=== PATIENT | female | born 1990 | race Caucasian/White ===

== ENCOUNTER 2023-11-15 01:29 | Emergency (ER) | payer OTHER, SELFPAY ==
[2023-11-15 01:29] VITALS: BMI 37.0
[2023-11-15 01:37] VITALS: BP 159/91
--- NOTE | 2023-11-15 01:57 | ED.GENMED ---
History of Present Illness
<ABNER Giang - Last Filed: 11/15/23 02:16>
General
Chief Complaint: Abdominal Symptoms
Source: patient
Exam Limitations: none
Time Seen by Provider: 11/15/23 01:43
Travel History
Have you had any contact with someone who has COVID-19?: No
Do you have any symptoms of coronavirus? Fever > 100 degrees, chills, cough, shortness of breath, sore throat, loss of taste or smell, muscle aches, or headache?: No
History of Present Illness
History of Present Illness:
33 year old female with no significant past medical hx who presents with worsening left costal pain that radiates to the back that began 2 days ago. Pain is sharp, constant, and currently 8/10 in strength. Pain worsens with deep breathing, improved
with movement. She has been taking Ibuprofen 600 mg, last dose was 1800 without relief of symptoms. She also developed a dull pain to her L shoulder that radiates down her arm. Reports associated nausea. Denies midsternal chest pain, SOB,
fevers/chills, numbness, tingling, vomiting, diarrhea, dysuria, hematuria, URI symptoms. She notes she had an egg retrieval procedure 2 weeks ago. She is on vitamins. She is currently on her menses.
Review of Systems
<ABNER Giang - Last Filed: 11/15/23 02:16>
Review of Systems
Allergies reviewed?: Yes
All Other Systems: ROS reviewed and negative except as documented in HPI and ROS
Constitutional: Reports no symptoms
EENT: Reports no symptoms
Respiratory: Reports no symptoms
Cardiac: Reports chest pain (left lower anterior chest)
ABD/GI: Reports nausea
: Reports no symptoms
Musculoskeletal: Reports back pain and other (left arm pain)
Skin: Reports no symptoms
Neurological: Reports no symptoms
Endocrine: Reports no symptoms
Hematologic/Lymphatic: Reports no symptoms
Psychiatric: Reports no symptoms
Phy Exam
<ABNER Giang - Last Filed: 11/15/23 02:16>
General Physical Exam
General Presentation: well appearing and no apparent distress
General age: appears stated age
General Skin: warm and dry
General Habitus: normal
General Mental: alert
General Hydration: appears well hydrated
Cardiovascular Exam
Cardiovascular Exam: no edema, no gallop, no murmur and tachycardia
Pulmonary Exam
Pulmonary Exam: lungs clear, no respiratory distress, no rales, no crackles, no rhonchi, no wheezing and no cough
Gastrointestinal Exam
Gastrointestinal Exam: normal bowel sounds, non tender, soft, no pulsatile mass and non distended
Neurological Exam
Neurological Exam: alert and oriented x3
Musculoskeletal Exam
Musculoskeletal Exam: full ROM (L arm) and other (no reproducible tenderness to L lower anterior chest, )
Scores
<ABNER Giang - Last Filed: 11/15/23 02:16>
PE Wells Score
Symptoms of DVT: No
No alternative diagnosis better explains the illness: No
Tachycardia with pulse > 100: Yes
Immobilization (>=3 days) or surgery within previous 4 weeks: Yes
Prior history of DVT or pulmonary embolism: No
Presence of hemoptysis: No
Presence of malignancy: No
Pulmonary Embolism Risk Score: 3.0
Probability of PE: Pt is moderate risk
<Magda Huber MD - Last Filed: 11/15/23 05:36>
PE Wells Score
Pulmonary Embolism Risk Score: 3.0
Probability of PE: Pt is moderate risk
Course
<ABNER Giang - Last Filed: 11/15/23 02:16>
Orders/Labs/Results
Orders:
Orders
11/15/23 02:15
Electrocardiogram (*1) Stat
Reason for Study: Other
Other Reason for Exam: chest pain
EKG- Treatment ONCE
11/15/23 02:24
CT Chest Pe Study Urgent
Comment:
Reason For Exam: pleuritic cp
11/15/23 02:39
Complete Blood Count/No Diff Urgent
Comprehensive Metabolic Panel Urgent
11/15/23 04:49
Urinalysis Reflex To Culture Urgent
Date Specimen was Collected: 11/15/23
Time Specimen was Collected: 04:45
Urine Microscopic Reflex Cult Urgent
11/15/23 05:27
Ketorolac [Toradol] 15 mg IV NOW STA
Abnormal Lab Results
11/15/23 11/15/23
02:39 04:49
WBC 12.0 H 10^3/uL
(4.8-10.8)
Hgb 11.8 L g/dL
(12.0-16.0)
Hct 35.0 L %
(37.0-47.0)
MCV 79.5 L fL
(81.0-99.0)
MCH 26.8 L pg
(27.0-31.0)
Chloride 108 H mmol/L
(98-107)
Carbon Dioxide 21 L mmol/L
(22-30)
Glucose 101 H mg/dl
(70-99)
Ur Occult Blood Reflex 4+ A
(Negative)
11/15/23 02:39
11/15/23 02:39
Vital Signs
Initial and Last Documented VS:
Initial Vital Signs
Temp Pulse Resp BP Pulse Ox
98.4 F 114 16 159/91 99
11/15/23 01:37 11/15/23 01:37 11/15/23 01:37 11/15/23 01:37 11/15/23 01:37
Last Documented Vital Signs
Temp Pulse Resp BP Pulse Ox
98.4 F 112 16 129/86 100
11/15/23 01:37 11/15/23 03:31 11/15/23 03:31 11/15/23 03:31 11/15/23 03:31
<Magda Huber MD - Last Filed: 11/15/23 05:36>
Orders/Labs/Results
Orders:
Orders
11/15/23 02:15
Electrocardiogram (*1) Stat
Reason for Study: Other
Other Reason for Exam: chest pain
EKG- Treatment ONCE
11/15/23 02:24
CT Chest Pe Study Urgent
Comment:
Reason For Exam: pleuritic cp
11/15/23 02:39
Complete Blood Count/No Diff Urgent
Comprehensive Metabolic Panel Urgent
11/15/23 04:49
Urinalysis Reflex To Culture Urgent
Date Specimen was Collected: 11/15/23
Time Specimen was Collected: 04:45
Urine Microscopic Reflex Cult Urgent
11/15/23 05:27
Ketorolac [Toradol] 15 mg IV NOW STA
Abnormal Lab Results
11/15/23 11/15/23
02:39 04:49
WBC 12.0 H 10^3/uL
(4.8-10.8)
Hgb 11.8 L g/dL
(12.0-16.0)
Hct 35.0 L %
(37.0-47.0)
MCV 79.5 L fL
(81.0-99.0)
MCH 26.8 L pg
(27.0-31.0)
Chloride 108 H mmol/L
(98-107)
Carbon Dioxide 21 L mmol/L
(22-30)
Glucose 101 H mg/dl
(70-99)
Ur Occult Blood Reflex 4+ A
(Negative)
11/15/23 02:39
11/15/23 02:39
Vital Signs
Initial and Last Documented VS:
Initial Vital Signs
Temp Pulse Resp BP Pulse Ox
98.4 F 114 16 159/91 99
11/15/23 01:37 11/15/23 01:37 11/15/23 01:37 11/15/23 01:37 11/15/23 01:37
Last Documented Vital Signs
Temp Pulse Resp BP Pulse Ox
98.4 F 112 16 129/86 100
11/15/23 01:37 11/15/23 03:31 11/15/23 03:31 11/15/23 03:31 11/15/23 03:31
<ABNER Giang - Last Filed: 11/15/23 02:16>
MDM/Problems Addressed
Differential Diagnosis Includes:
PE, musculoskeletal pain, malignancy
MDM/Problems Addressed:
33 year old female who presents with L costal pain that began 2 days ago.
<ABNER Giang - Last Filed: 11/15/23 02:16>
*Critical Care Note
Total Time (30-74mins, 75-104mins- exclusive of procedures): Not Applicable
ED Attending Note
<ABNER Giang - Last Filed: 11/15/23 02:16>
-
Portions of this chart may have been created with voice recognition software.� Occasional wrong word or��sound alike� substitutions may have occurred due to the inherent limitations of voice recognition software.
<Magda Huber MD - Last Filed: 11/15/23 05:36>
ED Attending Note
Patient seen and examined by attending physician: Yes
I performed the substantive portion of visit, reviewed & personally made and approve the management plan that is documented in note by myself or NILDA.: Yes
ED Attending Note:
33-year-old female who had an egg retrieval 2 weeks ago. She was feeling well until Saturday evening when she developed discomfort in the left anterior lower chest just below her breast as well as the left back. The pain does not radiate through
to her back. This was not sudden in onset. She took Motrin without relief of symptoms. The pain continues, is noted to be sharp and pleuritic without associated dyspnea, diaphoresis, dizziness, vomiting, leg swelling, abdominal pain, fever,
chills, cough, sore throat, headache. She does note mild nausea. She also noted discomfort in the left arm neck area that feels like a 'dull throb.' On exam, GENERAL: Alert , in no apparent distress
EYE: pupils equal and reactive
NECK: Supple, no significant adenopathy.
ENT: o/p clr, mmm.
CARDIAC: Regular rate and rhythm .
LUNGS: Clear breath sounds bilaterally, no acute respiratory distress, no wheezes/rales/rhonchi
ABDOMEN: Soft, without focal tenderness, no r/g, no cvat
NEUROLOGICAL: Alert and oriented, no focal neuro deficits
SKIN: Warm and dry, skin intact.
MUSCULOSKELETAL: No edema, well perfused.
PSYCH: Normal and appropriate interaction.
Patient presents to the Emergency Department with ____chest and back pain
Number and Complexity of Problems Addressed at the Encounter
� Chronic conditions affecting care:
� Acute Exacerbation and/or Progression of Chronic Illness:
� Differential Diagnosis includes: But not limited to anxiety, musculoskeletal, pleurisy, PE, etc.
Amount and/or Complexity of Data to be Reviewed and Analyzed
� I performed an independent evaluation of and my interpretation is:
EKG: Read by me, sinus tachycardia, no acute ischemia, no right heart strain noted
CT: Vision report verbal no PE noted. Patient does have left epipericardial fat necrosis and a small left pleural effusion
Xrays:
Laboratory Studies: Nonspecific leukocytosis, mild, blood noted in urine which would be expected given patient is menstruating and likely contaminant
Other:
� Review of other/old records reveals:
� Clinical information was obtained by an independent historian:
� Prescriptions/Medications Considered but not given:
� Further testing considered but not performed:
Risk of Complications and/or Morbidity or Mortality of Patient Management
� Social determinants of health affecting care:
� Discussion with other providers (PCP, Hospitalists, Consultants, etc):
� Escalation of care including admission/observation vs risk of discharge considered:Pt with epicardial fat necrosis and small L pl effusion on CT, no pe or other abnl noted. Via verbal rads report, and my review, this dx
considered a benign inflammatory condition txd with NSAIDS. Toradol ordered now. Long d/w pt re:dx, import of f/u and reasons to rted. She is stable, vitals wnl.
Discharge Plan
Departure
Patient Disposition: Home (Routine Discharge)
Date of Disposition: 11/15/23
Time of Disposition: 05:33
Patient with high blood pressure during this ER visit?: Yes
Condition: Good
Discharge Problem:
epicardial fat necrosis, Pleural effusion
Instructions: Pleural effusion - Discharge instructions, BLOOD PRESSURE
Referrals:
Mark Herman, DO [Family Provider] - Follow up in 2-3 days
Activity Restrictions/Additional Instructions:
PLEASE TAKE ANTI INFLAMMATORY MEDICATIONS (EX. MOTRIN) EVERY 6-8 HOURS. IF YOU DEVELOP INCREASING/NEW/PERSISTENT PAIN, FEVER, VOMITING, TROUBLE BREATHING, ABDOMINAL PAIN, GET WORSE, DO NOT GET BETTER OR OTHER WORRISMOE SIGNS, GO TO THE ER
IMMEDIATELY!
Interventions
Interventions:
*Risk Screen - Suicide Last Done: 11/15/23 01:37
*General Assessment Last Done: 11/15/23 01:37
*Neglect/Abuse Screening Last Done: 11/15/23 01:37
Discharge Date and Time
Print Language: YI
[2023-11-15 03:03] LABS: Hemoglobin 11.8 g/dL (12.0-16.0); Mean Corp Hgb Conc. 33.7 g/dL (33.0-37.0); Mean Corpuscular Hgb 26.8 pg (27.0-31.0); Mean Corpuscular Volume 79.5 fL (81.0-99.0); Mean Platelet Volume 8.4 fL (7.4-10.4); Platelet Count 385 10^3/uL (130-400); Red Cell Dist. Width 14.1 % (11.5-14.5)
[2023-11-15 03:20] LABS: ALT (SGPT) 18 U/L (0-35); AST (SGOT) 21 U/L (14-36); Albumin 4.1 g/dl (3.5-5.0); Alkaline Phosphatase 74 U/L (38-126); Blood Urea Nitrogen 14 mg/dl (7-17); Calcium 9.8 mg/dl (8.4-10.2); Carbon Dioxide 21 mmol/L (22-30); Chloride 108 mmol/L (98-107); Glucose 101 mg/dl (70-99); Potassium 3.9 mmol/L (3.5-5.1); Sodium 136 mmol/L (135-145); Total Bilirubin 0.4 mg/dl (0.2-1.3); eGFR > 60.00
[2023-11-15 03:31] VITALS: BP 129/86
[2023-11-15 05:04] LABS: Urine Albumin Negative (Neg - Trace); Urine Bilirubin Negative (Negative); Urine Character Clear (Clear); Urine Color Yellow; Urine Glucose Negative (Negative); Urine Ketone Negative (Negative); Urine Leukocyte Negative (Negative); Urine Nitrite Negative (Negative); Urine Occult Blood 4+ (Negative); Urine Urobilinogen Negative (Neg - 1+)
[2023-11-15] MEDS: TORADOL 15 MG IV (05:35)
[2023-11-15 05:38] VITALS: BP 126/80
[2023-11-15 08:16] LABS: Urine Squamous Cell 0-2 /LPF (Few)
[2023-11-15 08:17] LABS: Urine White Cell 0-2 /HPF (0-5)
== END 2023-11-15 06:16 | disposition home or self-care (01) ==
LOC: EMR 01:29
PROVIDERS: EMERGENCY PHYSICIAN Emergency Medicine; FAMILY PHYSICIAN Family Medicine
DX: M25.512 Pain in left shoulder (principal); R11.0 Nausea; R10.9 Unspecified abdominal pain; M54.9 Dorsalgia, unspecified; J90 Pleural effusion, not elsewhere classified; M79.89 Other specified soft tissue disorders; R03.0 Elevated blood-pressure reading, without diagnosis of hypertension; Z98.890 Other specified postprocedural states
CPT/HCPCS: 99285; 96374; 71275; 80053; 81003; 81015; 85027; 93005; Q9967

== ENCOUNTER → 2024-05-19 06:52 | Outpatient (REF) | payer OTHER, SELFPAY | LOC: PNTC 06:52 | PROVIDERS: ATTENDING PHYSICIAN Obstetrics & Gynecology | DX: Z36.0 Encounter for antenatal screening for chromosomal anomalies (principal); Z36.82 Encounter for antenatal screening for nuchal translucency | CPT/HCPCS: 76801; 76813 ==

== ENCOUNTER → 2024-06-08 06:46 | Outpatient (REF) | payer OTHER, SELFPAY | LOC: PNTC 06:46 | PROVIDERS: ATTENDING PHYSICIAN Obstetrics & Gynecology | DX: O09.529 Supervision of elderly multigravida, unspecified trimester (principal); Z34.82 Encounter for supervision of other normal pregnancy, second trimester | CPT/HCPCS: 76805 ==

== ENCOUNTER → 2024-07-07 06:50 | Outpatient (REF) | payer OTHER, SELFPAY | LOC: PNTC 06:50 | PROVIDERS: ATTENDING PHYSICIAN Obstetrics & Gynecology | DX: O09.529 Supervision of elderly multigravida, unspecified trimester (principal) | CPT/HCPCS: 76811 ==

== ENCOUNTER 2024-08-09 15:57 | Observation (INO) | payer OTHER, SELFPAY ==
[2024-08-09 16:12] VITALS: BP 121/57; BMI 37.8
[2024-08-09] MEDS: LR 1000 IV ×2 (16:30→18:00)
[2024-08-09 16:34] LABS: Urine Albumin Negative (Neg - Trace); Urine Bilirubin Negative (Negative); Urine Character Clear (Clear); Urine Color Yellow; Urine Glucose Negative (Negative); Urine Ketone 1+ (Negative); Urine Leukocyte 1+ (Negative); Urine Nitrite Negative (Negative); Urine Occult Blood Negative (Negative); Urine Urobilinogen Negative (Neg - 1+)
[2024-08-09 16:40] LABS: % Basophils 0.2 % (0-2); % Eosinophils 1.3 % (0-6); % Immature Granulocytes 0.2 % (0-0.5); % Lymphocytes 16.6 % (20.5-51.1); % Monocytes 6.1 % (1.7-9.3); % Neutrophils 75.6 % (42.2-75.2); Absolute Eosinophils 0.2 10^3/uL (0-0.7); Absolute Monocytes 0.7 10^3/uL (0.1-0.6); Absolute Neutrophils 9.2 10^3/uL (1.4-6.5); Hematocrit 32.9 % (37.0-47.0); Hemoglobin 10.9 g/dL (12.0-16.0); Mean Corp Hgb Conc. 33.1 g/dL (33.0-37.0); Mean Corpuscular Hgb 27.9 pg (27.0-31.0); Mean Corpuscular Volume 84.4 fL (81.0-99.0); Nucleated Red Blood Cells % 0 %; Platelet Count 302 10^3/uL (130-400); Red Cell Dist. Width 13.5 % (11.5-14.5); White Blood Cell Count 12.2 10^3/uL (4.8-10.8)
[2024-08-09 16:49] LABS: Urine Squamous Cell 0-2 /LPF (Few)
[2024-08-09 16:50] LABS: Urine Bacteria Few (Negative); Urine Red Blood Cell 0-2 /HPF (0-2)
[2024-08-09 17:03] LABS: ALT (SGPT) 21 U/L (0-35); AST (SGOT) 21 U/L (14-36); Albumin 3.8 g/dl (3.5-5.0); Alkaline Phosphatase 91 U/L (38-126); Blood Urea Nitrogen 4 mg/dl (7-17); Calcium 9.6 mg/dl (8.4-10.2); Carbon Dioxide 18 mmol/L (22-30); Chloride 106 mmol/L (98-107); Estimated Creatinine Clearance > 125 ml/min; Glucose 80 mg/dl (70-99); Sodium 133 mmol/L (135-145); Total Bilirubin 0.5 mg/dl (0.2-1.3); Total Protein 6.2 g/dl (6.3-8.2); eGFR > 60.00
== END 2024-08-09 20:24 | disposition home or self-care (01) ==
LOC: LDRP 15:57
PROVIDERS: ADMITTING PHYSICIAN Obstetrics & Gynecology; FAMILY PHYSICIAN Family Medicine
DX: O26.892 Other specified pregnancy related conditions, second trimester (principal); R10.30 Lower abdominal pain, unspecified; R39.15 Urgency of urination; Z3A.24 24 weeks gestation of pregnancy; O09.522 Supervision of elderly multigravida, second trimester; D25.9 Leiomyoma of uterus, unspecified; Z14.1 Cystic fibrosis carrier
CPT/HCPCS: 80053; 81003; 81015; 82731; 85025; 86850; 86900; 86901; 87086; G0378

== ENCOUNTER → 2024-08-17 06:52 | Outpatient (REF) | payer OTHER, SELFPAY | LOC: PNTC 06:52 | PROVIDERS: ATTENDING PHYSICIAN Obstetrics & Gynecology | DX: O09.519 Supervision of elderly primigravida, unspecified trimester (principal); O09.819 Supervision of pregnancy resulting from assisted reproductive technology, unspecified trimester; O99.210 Obesity complicating pregnancy, unspecified trimester | CPT/HCPCS: 76816 ==

== ENCOUNTER → 2024-10-05 06:51 | Outpatient (REF) | payer OTHER, SELFPAY | LOC: PNTC 06:51 | PROVIDERS: ATTENDING PHYSICIAN Obstetrics & Gynecology | DX: O09.529 Supervision of elderly multigravida, unspecified trimester (principal) | CPT/HCPCS: 76816 ==

== ENCOUNTER 2024-10-27 08:09 | Observation (INO) | payer OTHER, SELFPAY ==
[2024-10-27 08:35] VITALS: BP 161/93; BMI 39.2
[2024-10-27 08:37] LABS: % Basophils 0.1 % (0-2); % Eosinophils 0.5 % (0-6); % Immature Granulocytes 0.6 % (0-0.5); % Lymphocytes 12.1 % (20.5-51.1); % Monocytes 4.4 % (1.7-9.3); % Neutrophils 82.3 % (42.2-75.2); Absolute Eosinophils 0.1 10^3/uL (0-0.7); Absolute Immature Granulocytes 0.1 10^3/uL (0-0.05); Absolute Lymphocytes 1.3 10^3/uL (1.2-3.4); Absolute Monocytes 0.5 10^3/uL (0.1-0.6); Absolute Neutrophils 8.7 10^3/uL (1.4-6.5); Hematocrit 32.8 % (37.0-47.0); Hemoglobin 10.8 g/dL (12.0-16.0); Mean Corp Hgb Conc. 32.9 g/dL (33.0-37.0); Mean Corpuscular Hgb 27.6 pg (27.0-31.0); Mean Corpuscular Volume 83.7 fL (81.0-99.0); Mean Platelet Volume 9.2 fL (7.4-10.4); Nucleated Red Blood Cells % 0 %; Platelet Count 329 10^3/uL (130-400); Red Blood Cell Count 3.92 10^6/uL (4.20-5.40); White Blood Cell Count 10.5 10^3/uL (4.8-10.8)
[2024-10-27 08:39] LABS: ALT (SGPT) 19 U/L (0-35); AST (SGOT) 21 U/L (14-36); Albumin 3.2 g/dl (3.5-5.0); Alkaline Phosphatase 136 U/L (38-126); Blood Urea Nitrogen 12 mg/dl (7-17); Calcium 9.4 mg/dl (8.4-10.2); Carbon Dioxide 21 mmol/L (22-30); Chloride 111 mmol/L (98-107); Glucose 88 mg/dl (70-99); Potassium 4.2 mmol/L (3.5-5.1); Sodium 137 mmol/L (135-145); Total Bilirubin 0.2 mg/dl (0.2-1.3); Total Protein 5.8 g/dl (6.3-8.2); Uric Acid 6.2 mg/dl (2.5-6.2); Urine Albumin Negative (Neg - Trace); Urine Bilirubin Negative (Negative); Urine Character Clear (Clear); Urine Color Yellow; Urine Glucose Negative (Negative); Urine Ketone Negative (Negative); Urine Leukocyte 1+ (Negative); Urine Nitrite Negative (Negative); Urine Occult Blood Negative (Negative); Urine Urobilinogen Negative (Neg - 1+); Urine pH 6.5 (5.0-9.0); eGFR > 60.00
[2024-10-27 08:55] LABS: Protein/creatinine Ratio 0.1; Urine Protein 9 mg/dl
[2024-10-27 09:05] LABS: Urine Bacteria Moderate (Negative); Urine Red Blood Cell 0-2 /HPF (0-2); Urine Urothelial Cell 0-2 /LPF (FEW)
== END 2024-10-27 10:16 | disposition home or self-care (01) ==
LOC: PNTC-IN 08:09
PROVIDERS: ADMITTING PHYSICIAN Obstetrics & Gynecology; ATTENDING PHYSICIAN Obstetrics & Gynecology
DX: O16.3 Unspecified maternal hypertension, third trimester (principal); O09.523 Supervision of elderly multigravida, third trimester; O99.213 Obesity complicating pregnancy, third trimester; O09.813 Supervision of pregnancy resulting from assisted reproductive technology, third trimester; Z3A.36 36 weeks gestation of pregnancy; O34.13 Maternal care for benign tumor of corpus uteri, third trimester; D25.9 Leiomyoma of uterus, unspecified
CPT/HCPCS: 59025; 76816; 80053; 81003; 81015; 82570; 84156; 84550; 85025; G0378

== ENCOUNTER → 2024-11-03 07:08 | Outpatient (REF) | payer OTHER, SELFPAY | LOC: PNTC 07:08 | PROVIDERS: ATTENDING PHYSICIAN Obstetrics & Gynecology | DX: O09.529 Supervision of elderly multigravida, unspecified trimester (principal); O99.213 Obesity complicating pregnancy, third trimester; O09.813 Supervision of pregnancy resulting from assisted reproductive technology, third trimester | CPT/HCPCS: 59025; 76815 ==

== ENCOUNTER 2024-11-03 11:58 | Inpatient (IN) | payer OTHER, SELFPAY ==
[2024-11-03 12:08] VITALS: BP 141/79; BMI 40.4
[2024-11-03 12:46] LABS: % Basophils 0.2 % (0-2); % Eosinophils 0.5 % (0-6); % Immature Granulocytes 0.4 % (0-0.5); % Lymphocytes 14.1 % (20.5-51.1); % Monocytes 5.1 % (1.7-9.3); % Neutrophils 79.7 % (42.2-75.2); Absolute Eosinophils 0.1 10^3/uL (0-0.7); Absolute Lymphocytes 1.6 10^3/uL (1.2-3.4); Absolute Monocytes 0.6 10^3/uL (0.1-0.6); Absolute Neutrophils 8.9 10^3/uL (1.4-6.5); Hematocrit 33.3 % (37.0-47.0); Hemoglobin 10.9 g/dL (12.0-16.0); Mean Corp Hgb Conc. 32.7 g/dL (33.0-37.0); Mean Corpuscular Hgb 27.5 pg (27.0-31.0); Mean Corpuscular Volume 83.9 fL (81.0-99.0); Mean Platelet Volume 9.4 fL (7.4-10.4); Nucleated Red Blood Cells % 0 %; Platelet Count 325 10^3/uL (130-400); Red Blood Cell Count 3.97 10^6/uL (4.20-5.40); Red Cell Dist. Width 15.1 % (11.5-14.5); White Blood Cell Count 11.1 10^3/uL (4.8-10.8)
[2024-11-03 13:05] LABS: ALT (SGPT) 17 U/L (0-35); AST (SGOT) 23 U/L (14-36); Albumin 3.6 g/dl (3.5-5.0); Alkaline Phosphatase 185 U/L (38-126); Blood Urea Nitrogen 11 mg/dl (7-17); Calcium 9.8 mg/dl (8.4-10.2); Carbon Dioxide 21 mmol/L (22-30); Chloride 112 mmol/L (98-107); Estimated Creatinine Clearance > 125 ml/min; Glucose 77 mg/dl (70-99); Potassium 4.3 mmol/L (3.5-5.1); Sodium 136 mmol/L (135-145); Total Bilirubin 0.4 mg/dl (0.2-1.3); Total Protein 6.2 g/dl (6.3-8.2); eGFR > 60.00
[2024-11-03 13:11] LABS: Urine Albumin 1+ (Neg - Trace); Urine Bilirubin Negative (Negative); Urine Character Clear (Clear); Urine Color Yellow; Urine Glucose Negative (Negative); Urine Ketone 1+ (Negative); Urine Leukocyte 2+ (Negative); Urine Nitrite Negative (Negative); Urine Occult Blood Negative (Negative); Urine Urobilinogen Negative (Neg - 1+); Urine pH 6.5 (5.0-9.0)
[2024-11-03 13:40] LABS: Urine Amorphous Seen; Urine Squamous Cell 16-20 /LPF (Few)
[2024-11-03 13:41] LABS: Urine Red Blood Cell 0-2 /HPF (0-2)
[2024-11-03 13:43] LABS: Urine Bacteria Many (Negative)
[2024-11-03 13:48] LABS: Protein/creatinine Ratio 0.4; Urine Protein 18 mg/dl
[2024-11-03] MEDS: CYTOTEC 25 MICROGRAM VAG (14:04)
[2024-11-03] MEDS: CYTOTEC 50 MICROGRAM PO (18:17)
[2024-11-03] MEDS: LR 1000 IV (22:06)
[2024-11-03] MEDS: FLUSH (NSS) 1 FLUSH IV (22:06)
[2024-11-04] MEDS: CYTOTEC PO ×2 (00:33→03:07)
[2024-11-04] MEDS: CYTOTEC 50 MICROGRAM PO ×3 (03:07→12:02)
--- NOTE | 2024-11-04 16:37 | DOWNTIME ---
There was a [employer] Downtime on 11/04/2024 from 1230 to 11/04/2024 at 1550. Downtime documentation of patient's care, including medication administrations, has been reconciled in the electronic record per guidelines. Refer to the
patient's paper chart under the miscellaneous tab to see printed paper medication records and downtime forms.
[2024-11-04] MEDS: PITOCIN 30 UNITS/NSS 500 ML IV (19:03)
[2024-11-05] MEDS: LR 1000 IV ×2 (02:10→22:06)
[2024-11-05] MEDS: STADOL 1 MG IV ×2 (10:07→11:50)
[2024-11-05] MEDS: TRANDATE 20 MG IV ×2 (10:12→14:56)
[2024-11-05] MEDS: MAGNESIUM SULFATE 100 IV (10:18)
[2024-11-05] MEDS: MAGNESIUM SULFATE 40 GRAM 1000 IV (10:39)
[2024-11-05] MEDS: PROCARDIA XL (EXTENDED RELEASE) 30 MG PO (15:02)
[2024-11-05] MEDS: TRANDATE 40 MG IV (15:55)
[2024-11-05] MEDS: TYLENOL 650 MG PO (20:27)
[2024-11-05] MEDS: FENTANYL/BUPIVACAINE 100 EPIDURAL (21:31)
[2024-11-05] MEDS: SUBLIMAZE 100 MCG EPIDURAL (21:31)
[2024-11-05] MEDS: TUMS CHEWABLE TABLET 400 MG PO (22:36)
[2024-11-06] MEDS: PITOCIN 30 UNITS/NSS 500 ML IV (00:31)
[2024-11-06] MEDS: FENTANYL/BUPIVACAINE 100 EPIDURAL ×2 (06:10→12:04)
[2024-11-06] MEDS: MAGNESIUM SULFATE 40 GRAM 1000 IV ×2 (06:18→14:52)
[2024-11-06] MEDS: LR 1000 IV (10:06)
[2024-11-06] MEDS: PROCARDIA XL (EXTENDED RELEASE) PO (10:28)
[2024-11-06] MEDS: MOTRIN 600 MG PO ×2 (14:56→22:25)
[2024-11-06] MEDS: PROCARDIA XL (EXTENDED RELEASE) 30 MG PO (15:17)
[2024-11-07] MEDS: LR 1000 IV (01:37)
[2024-11-07] MEDS: MAGNESIUM SULFATE 40 GRAM 1000 IV (02:37)
[2024-11-07] MEDS: TYLENOL 650 MG PO ×3 (02:48→20:46)
[2024-11-07 06:41] LABS: Hematocrit 27.8 % (37.0-47.0)
[2024-11-07] MEDS: PRENATAL PLUS 1 TABLET PO (13:30)
[2024-11-07] MEDS: PROCARDIA XL (EXTENDED RELEASE) 30 MG PO (13:30)
[2024-11-07] MEDS: SENOKOT-S 1 TABLET PO (13:30)
[2024-11-07] MEDS: MOTRIN 600 MG PO ×2 (13:30→20:45)
[2024-11-07] MEDS: LR IV (14:37)
[2024-11-07] MEDS: PROCARDIA XL (EXTENDED RELEASE) PO (14:40)
[2024-11-08] MEDS: MOTRIN 600 MG PO ×2 (03:30→09:30)
[2024-11-08] MEDS: TYLENOL 650 MG PO ×2 (03:30→09:31)
[2024-11-08] MEDS: M-M-R II 0.5 ML SC (07:43)
[2024-11-08] MEDS: FEOSOL 325 MG PO (07:44)
[2024-11-08] MEDS: PRENATAL PLUS 1 TABLET PO (07:45)
[2024-11-10 13:07] LABS: Syphilis/T. pallidum Ab Reflex Negative (Negative)
== END 2024-11-08 15:11 | disposition home or self-care (01) | DRG 807 ==
LOC: LDRP 11:58
PROVIDERS: Obstetrics & Gynecology; Student in an Organized Health Care Education/Training Program; ADMITTING PHYSICIAN Obstetrics & Gynecology
PROC: 3E0P7VZ Introduction of Hormone into Female Reproductive, Via Natural or Artificial Opening (ICD-10-PCS; 2024-11-03)
PROC: 3E033VJ Introduction of Other Hormone into Peripheral Vein, Percutaneous Approach (ICD-10-PCS; 2024-11-04)
PROC: 10907ZC Drainage of Amniotic Fluid, Therapeutic from Products of Conception, Via Natural or Artificial Opening (ICD-10-PCS; 2024-11-05)
PROC: 0U7C7DJ Dilation of Cervix with Intraluminal Device, Temporary, Via Natural or Artificial Opening (ICD-10-PCS; 2024-11-05)
PROC: 0KQM0ZZ Repair Perineum Muscle, Open Approach (ICD-10-PCS; 2024-11-06)
PROC: 10H07YZ Insertion of Other Device into Products of Conception, Via Natural or Artificial Opening (ICD-10-PCS; 2024-11-06)
PROC: 10E0XZZ Delivery of Products of Conception, External Approach (ICD-10-PCS; 2024-11-06)
DX: O14.14 Severe pre-eclampsia complicating childbirth (principal); Z37.0 Single live birth; O13.4 Gestational [pregnancy-induced] hypertension without significant proteinuria, complicating childbirth; O99.214 Obesity complicating childbirth; O70.1 Second degree perineal laceration during delivery; Z3A.37 37 weeks gestation of pregnancy
CPT/HCPCS: 88307; 80053; 81003; 81015; 82570; 84156; 85014; 85018; 85025; 86780; 86850; 86900; 86901; 90707